=== PATIENT | female | born 1965 | race Hispanic/Latino ===

== ENCOUNTER 2022-11-04 08:57 | Emergency (ER) | payer OTHER ==
[~2022-11-04] VITALS: Ht 160 cm; Wt 66.2 kg
[2022-11-04] MEDS ORDERED: CEFAZOLIN SODIUM 500 MG VIAL IM STA (09:21)
[2022-11-04] MEDS ORDERED: DIPH,PERTUSS(ACELL),TET VAC/PF 0.5 ML VIAL IM ONE (09:30)
[2022-11-04] MEDS ORDERED: ACETAMINOPHEN 500 MG TABLET PO STA (09:33)
[2022-11-04] MEDS ORDERED: TETANUS/DIPHTHERIA TOXOID [ADULT] 0.5 ML VIAL IM ONE (10:00)
[2022-11-04] MEDS ORDERED: CEFAZOLIN SODIUM 500 MG VIAL IM SCH (10:00)
[2022-11-04] MEDS ORDERED: CLIN-141 PO (11:10)
[2022-11-04] MEDS ORDERED: RABIES VACC, HUMAN DIPLOID/PF 2.5 UNIT ML IM SCH (11:30)
[2022-11-04 11:31] VITALS: BP 150/78; PULSE 75; RESP 18; O2SAT 98
== END 2022-11-04 11:32 | disposition home or self-care (01) ==
LOC: EDH 08:57
DX: M79.641 Pain in right hand (principal); M79.632 Pain in left forearm; E11.9 Type 2 diabetes mellitus without complications; Z90.710 Acquired absence of both cervix and uterus
CPT/HCPCS: 99284; 90675; 90715; 73090; 73120; 96372; 90471; 90472; J0690

== ENCOUNTER 2023-02-23 10:44 | Emergency (ER) | payer OTHER ==
[~2023-02-23] VITALS: Ht 160 cm; Wt 68.0 kg
[~2023-02-23 10:44] MED LIST: CLIN-141 PO
[2023-02-23 11:01] VITALS: BP 129/70; PULSE 96; RESP 18
[2023-02-23] MEDS ORDERED: IBUP-2070 PO (13:58)
[2023-02-23] MEDS ORDERED: CYCLOBENZAPRINE HCL 10 MG TABLET PO ONE (14:00)
[2023-02-23] MEDS ORDERED: IBUPROFEN 600 MG TABLET PO ONE (14:00)
== END 2023-02-23 14:20 | disposition home or self-care (01) ==
LOC: EDH 10:44
DX: S66.811A Strain of other specified muscles, fascia and tendons at wrist and hand level, right hand, initial encounter (principal); X58.XXXA Exposure to other specified factors, initial encounter; Y93.89 Activity, other specified; Y92.89 Other specified places as the place of occurrence of the external cause; Y99.8 Other external cause status; I10 Essential (primary) hypertension; E11.9 Type 2 diabetes mellitus without complications; Z90.710 Acquired absence of both cervix and uterus; Z98.890 Other specified postprocedural states
CPT/HCPCS: 73030; 73080

== ENCOUNTER → 2023-10-16 | Outpatient (CLI) | payer OTHER ==
[~2023-10-16] MED LIST changes: +IBUP-2070 PO
== END | disposition home or self-care (01) ==
LOC: LAB 11:49
PROVIDERS: ATTEND Hospitalist
DX: U07.1 COVID-19 (principal)
CPT/HCPCS: 87426